=== PATIENT | female | born 1960 | race Asian ===

== ENCOUNTER 2016-08-15 06:50 | Emergency (ER) | payer OTHER ==
[~2016-08-15] VITALS: Ht 160 cm; Wt 60.9 kg
[2016-08-15 06:59] VITALS: BP 154/95
[2016-08-15] MEDS ORDERED: FLUORESCEIN OPHTHALMIC 1 MG STRIP ONE (07:09)
[2016-08-15] MEDS ORDERED: PROPARACAINE OPHTH 0.5%, 15ML ONE (07:09)
[2016-08-15] MEDS ORDERED: GLUC500T8 PO (07:35)
[2016-08-15] MEDS ORDERED: ASEN5TAB7 PO (07:35)
== END 2016-08-15 07:47 | disposition home or self-care (01) ==
LOC: ED 07:15
DX: H01.004 Unspecified blepharitis left upper eyelid (principal)
CPT/HCPCS: 99283

== ENCOUNTER → 2020-12-24 | Outpatient (CLI) | payer OTHER ==
[~2020-12-24] MED LIST: ASEN5TAB7 PO; GLUC500T11 PO
== END | disposition home or self-care (01) ==
LOC: CFH 13:37
PROVIDERS: ATTEND Nurse Practitioner Family
DX: N63.21 Unspecified lump in the left breast, upper outer quadrant (principal); R92.1 Mammographic calcification found on diagnostic imaging of breast
CPT/HCPCS: 76642; 77065